=== PATIENT | female | born 1995 | race Caucasian/White ===

== ENCOUNTER 2019-01-04 18:23 | Emergency (ER) | payer BC ==
[~2019-01-04] VITALS: Ht 175.3 cm; Wt 71.4 kg
[2019-01-04 18:28] VITALS: BP 140/83; TEMP 98.7
[2019-01-04] MEDS ORDERED: XANAX .25M0.25 MG/TA PO (18:32)
[2019-01-04] MEDS ORDERED: birth control (18:37)
[2019-01-04] MEDS ORDERED: FLEXERIL 1010 MG/TAB PO (19:16)
[2019-01-04 19:55] VITALS: PULSE 80
== END 2019-01-04 19:56 | disposition home or self-care (01) ==
LOC: COL.ER 18:23
DX: S13.4XXA Sprain of ligaments of cervical spine, initial encounter (principal); S50.812A Abrasion of left forearm, initial encounter; Z88.0 Allergy status to penicillin; V89.2XXA Person injured in unspecified motor-vehicle accident, traffic, initial encounter